=== PATIENT | female | born 1945 | race Caucasian/White ===

== ENCOUNTER 2018-04-24 08:19 | Emergency (ER) | payer OTHER, SELFPAY ==
[2018-04-24] VITALS (30 sets, daily range): BP systolic 128–176; BP diastolic 68–95; PULSE 82–93; RESP 16–25; TEMP 36.7–37; O2SAT 91–96
[2018-04-24 08:53] LABS: Abs Immature Grans 0.02 k/cumm (0.0-0.09); Absolute Basophil Count 0.06 k/cumm (0.0-0.2); Absolute Eosinophil Count 0.77 k/cumm (0.0-0.7); Absolute Lymphocyte Count 2.54 k/cumm (1.2-3.4); Absolute Monocyte Count 0.83 k/cumm (0.11-0.7); Absolute Neutrophil Count 6.41 k/cumm (1.2-6.7); Basophils % 0.6; Eosinophils % 7.2; HGB 13.2 g/dL (12.0-15.5); Immature Grans % 0.2; Lymphocytes % 23.9; Mean Corp. HGB Concentration 33.8 g/dL (32.0-36.0); Mean Corpuscular Volume 94.7 fL (80-95); Mean Platelet Volume 9.9 fL (8.0-11.0); Monocytes % 7.8; Neutrophils % 60.3; Platelet Count 339 x1000/uL (130-400); RBC 4.12 m/cumm (4.00-5.20); RBC Distribution Width 14.1 % (11.7-14.6); White Blood Cell Count 10.63 k/cumm (4.4-10.8)
--- NOTE | 2018-04-24 09:10 | DI.REPORT_ITS ---
SYMPTOM/DIAGNOSIS: CHEST PAIN PORTABLE AP CHEST: 04/24 The heart appears mildly enlarged. There is mildly increased intrapulmonary interstitial prominence in comparison with previous examinations raising the possibility of mild acute CHF. Note is also made of question change in contour of thoracic aorta in comparison with previous examinations land the possibility of thoracic aortic aneurysm is not excluded. Correlation with CT angiography of the chest is recommended. Results communicated with Dr. Hinkle.
--- NOTE | 2018-04-24 09:11 | DI.RPTCT_ITS ---
SYMPTOM/DIAGNOSIS: EPIGASTRIC ABDOMINAL PAIN AND SUBSTERNAL CHEST RADIATING TO BACK. CT ANGIOGRAPHY CHEST AND ABDOMEN: 04/24 CT angiography of the chest and abdomen was performed with a bolus infusion of 100 cc Omnipaque 350. The thoracic aorta is of normal diameter with no evidence of aneurysm or dissection. The major branch vessels are unremarkable. No evidence of pulmonary embolic disease. There is some atheromatous plaque formation in thoracic and abdominal aorta. No abdominal aortic aneurysm seen. Major aortic branches including celiac, SMA, renal arteries and KARYN appear intact. There is a large mediastinal mass on the left which appears centered at the level of the distal mainstem bronchus on the left with significant narrowing of the upper and lower lobe bronchi. There is encasement of thoracic aorta and left pulmonary artery. There are peripheral patchy areas of apparent consolidation in the left lung posteriorly with some tree and bilateral opacities also noted. There is honeycombing of the lungs, right greater than left. No dominant intrapulmonary mass is seen. No significant pleural effusions seen. Lymph node enlargement is noted in superior mediastinum and there is a large anterior mediastinal node measuring up to about 4 cm in diameter. No abdominal adenopathy seen. Liver, splen, adrenals, kidneys and pancreas are unremarkable in appearance. Gallbladder and bile ducts are CT normal. No gross bony destructive lesion identified. Severe degenerative changes of the thoracic and lumbar spine are noted. CONCLUSION: 1. No evidence of aortic dissection or aneurysm 2. No evidence of pulmonary embolic disease 3. Very large left hilar/mediastinal mass, highly suspicious for carcinoma with additional central and superior mediastinal adenopathy.
--- NOTE | 2018-04-24 09:12 | ED.GENADUL ---
Disposition Clinical Impression: Hilar mass Disposition: HOME Condition: Serious Instructions: Pneumonia (ED) Additional Instructions: You have a mass in your chest that is concerning for cancer. Please follow-up with your primary care physician as soon as possible. There is also concern on the CT imaging of possible early pneumonia. Please take antibiotic as prescribed. Please take Advil for pain-dose according to label. Please take tylenol (acetaminophen) 650 mg every 6 hours as needed for pain. Return to the emergency department immediately for any worsening or new concerning symptoms. Prescriptions: Azithromycin 250 mg PO DAILY #4 tablet Referrals: Gianna Sevilla [Primary Care Provider] - Medical Decision Making - Lab Data Laboratory Tests 04/24/18 08:35 WBC 10.63 RBC 4.12 Hgb 13.2 Hct 39.0 MCV 94.7 MCH 32.0 MCHC 33.8 RDW 14.1 Plt Count 339 MPV 9.9 Immature Gran % 0.2 Neutrophils % 60.3 Lymphocytes % 23.9 Monocytes % 7.8 Eosinophils % 7.2 Basophils % 0.6 Absolute Neutrophils 6.41 Absolute Lymphocytes 2.54 Absolute Monocytes 0.83 H Absolute Eosinophils 0.77 H Absolute Basophils 0.06 - Medical Decision Making 9:15 --72-year-old female with multiple medical problems including COPD, hypertension, hyperlipidemia, GERD, hiatal hernia status post repair approximately 5 years ago, presents with chief complaint of substernal chest pain and epigastric pain that is radiating to her back. Tender in her epigastrium that reproduces pain. Consider atypical presentation of ACS. ECG reviewed and interpreted by me: Normal sinus rhythm 89 bpm, normal axis, no STEMI. Plan to check troponin. Consider biliary disease and pancreatitis. Will check LFTs and lipase. I am concerned for recurrent hiatal hernia. Plan to CT to assess for any acute surgical pathology. Consider aortic dissection. 10:15 --chest x-ray interpreted by radiology: Abnormal aortic contour. 11:05 --CT interpreted by radiology: Large left hilar mass encases bronchi and great vessels,, suspect bronchogenic origin, questionable small infiltrate concerning for pneumonia. I reviewed results with the patient. I called and spoke with the patient's primary care office who will arrange for outpatient follow-up. History of Present Illness - General Chief complaint: Chest Pain Stated complaint: CHEST PAIN Time Seen by Provider: 04/24/18 08:35 Source: patient, RN notes reviewed Mode of arrival: ambulatory Limitations: no limitations - History of Present Illness Initial comments: 72-year-old female with multiple medical problems including COPD, hypertension, hyperlipidemia, hiatal hernia status post surgical repair, presents with chief complaint of chest pain. Pain is localized to her substernal chest and epigastric region and radiates to mid back. Pain is sharp. Pain is been progressive over the past 2 weeks. Pain is now constant. Moderate to severe. No modifiers. She was started on omeprazole as prescribed by PCP 2 weeks ago and this has not helped. Patient does note associated shortness of breath. - Related Data Narcotic Contract 10/07/14 Trazodone HCl 2 tab PO hs prn #180 tab-cap 07/07/15 Amlodipine Besylate 10 mg PO QAM #90 tab-cap 10/14/15 Venlafaxine HCl [Venlafaxine HCl ER] 150 mg PO DAILY #90 tab-cap 10/14/15 Cyanocobalamin (Vitamin B-12) [Vitamin B-12] 1,000 mcg PO DAILY #100 tab-cap 11/08/15 Calcium Citrate/Vitamin D3 [Calcium Citrate - Vit D Caplet] 1 each PO BID 01/11/17 Cholecalciferol (Vitamin D3) [Vitamin D3] 2,000 unit PO DAILY 01/11/17 Gabapentin 800 mg PO TID tab-cap 01/11/17 Lisinopril/Hydrochlorothiazide [Lisinopril-Hctz 20-12.5 mg Tab] 1 tab-cap PO DAILY tab-cap 01/11/17 Ibuprofen [Motrin] 600 mg PO Q6H PRN #20 tab 03/26/17 Ranitidine HCl 150 mg PO BID tab-cap 06/03/17 Tramadol HCl 50 mg PO DAILY PRN tab-cap 06/03/17 Azithromycin 250 mg PO DAILY #4 tablet 04/24/18 Allergies Allergy/AdvReac Type Severity Reaction Status Date / Time bupropion HCl AdvReac Severe DEPRESSION Unverified 04/24/18 09:03 [From Wellbutrin] codeine AdvReac Mild NAUSEA Unverified 04/24/18 09:03 carisoprodol [From Soma] AdvReac Unknown Unverified 04/24/18 09:03 Review of Systems Constitutional: denies: chills, fever Respiratory: shortness of breath. denies: cough Cardiovascular: chest pain Gastrointestinal: abdominal pain. denies: nausea, vomiting, diarrhea Comment: All other systems reviewed and negative Past Medical History - Past Medical History Medical history: COPD, hyperlipidemia, hypertension Hiatal hernia Surgical history: other (Knee replacement) - Social History Smoking status: current some day smoker Alcohol use: none Drug use: none General Exam - General Limitations: no limitations General appearance: alert, in no apparent distress - Eye Eye exam: Absent: scleral icterus, conjunctival injection - ENT ENT exam: Present: mucous membranes moist - Neck Neck exam: Present: other (No JVD) - Respiratory Respiratory exam: Present: normal lung sounds bilaterally. Absent: respiratory distress, wheezes, rales, rhonchi - Cardiovascular Cardiovascular Exam: Present: regular rate, normal rhythm, normal heart sounds - GI/Abdominal GI/Abdominal exam: Present: soft, tenderness (Epigastric), normal bowel sounds. Absent: distended, guarding, rebound, rigid - Extremities Exam Extremities exam: Absent: pedal edema, calf tenderness - Neurological Exam Neurological exam: Present: alert. Absent: altered - Psychiatric Psychiatric exam: Present: normal affect - Skin Skin exam: Present: warm, dry, intact. Absent: cyanosis, diaphoretic Course Vital Signs - 24 hr 04/24/18 04/24/18 04/24/18 08:25 08:27 08:28 Temperature 37.0 C Pulse 86 88 Respiratory 23 25 H 19 Rate Blood Pressure 156/68 156/68 Pulse Oximetry 95 96 95 04/24/18 04/24/18 04/24/18 08:30 08:31 08:40 Temperature Pulse 84 Respiratory 21 20 25 H Rate Blood Pressure 135/75 Pulse Oximetry 94 L 94 L 95 04/24/18 04/24/18 08:46 08:50 Temperature Pulse 86 Respiratory 16 24 Rate Blood Pressure 130/77 Pulse Oximetry 94 L 94 L
[2018-04-24 09:14] LABS: ALT 15 U/L (12-78); AST 11 U/L (15-37); Albumin 3.1 g/dL (3.4-5.0); Alkaline Phosphatase 98 U/L (46-116); BUN 10 mg/dL (7-18); Bilirubin, Total 0.4 mg/dL (0.2-1.0); CREATININE 0.83 mg/dL (0.55-1.02); Calcium 8.6 mg/dL (8.5-10.1); Chloride 99 mmol/L (98-107); Glucose 109 mg/dL (70-100); Magnesium 1.8 mg/dL (1.8-2.4); Sodium 136 mmol/L (136-145)
[2018-04-24 09:16] LABS: Troponin I < 0.02 ng/mL (0.00-0.06)
[2018-04-24 09:28] LABS: Lipase 56 U/L (73-393)
[2018-04-24] MEDS: Normal Saline Flush 10 ML SYR IVP (09:30)
[2018-04-24] MEDS: FAMOTIDINE 20 MG/50 ML BAG 100 MG IVPB (09:30)
[2018-04-24 09:56] LABS: NT-proBNP 173 pg/mL
[2018-04-24] MEDS: Omnipaque 350 MG/ML 100 ML BTL IJ (10:23)
[2018-04-24] MEDS: Azithromycin 250 MG TAB 500 MG PO (11:09)
[2018-04-24] MEDS: Ibuprofen 400 MG TAB PO (11:09)
--- NOTE | 2018-04-24 11:22 | PDOC.ERCMPRO ---
Care Management Progress Note 04/24-Dr. Hinkle requested assistance with Gabriela as he has diagnosed her with a mass in her chest (Please see Dr. Hinkle's note). Dr. Hinkle, this CM, Gabriela, and her granddaughter discussed the above. Dr. Hinkle did speak with [facility] (Gianna Sevilla is PCP) and [facility] will schedule appropriate follow up for her. This CM stayed with Gabriela and her granddaughter providing support. Granddaughter cried throughout the visit. Gabriela stated she was not afraid and didn't want her granddaughter to be upset. Offered continual support. Gabriela and her granddaughter have my contact information if further assistance is needed.
--- NOTE | 2018-04-24 11:31 | CMPROGNOTE_ITS ---
Care Management Progress Note 04/24-Dr. Hinkle requested assistance with Gabriela as he has diagnosed her with a mass in her chest (Please see Dr. Hinkle's note). Dr. Hinkle, this CM, Gabriela, and her granddaughter discussed the above. Dr. Hinkle did speak with [facility] (Gianna Sevilla is PCP) and [facility] will schedule appropriate follow up for her. This CM stayed with Gabriela and her granddaughter providing support. Granddaughter cried throughout the visit. Gabriela stated she was not afraid and didn't want her granddaughter to be upset. Offered continual support. Gabriela and her granddaughter have my contact information if further assistance is needed.
== END 2018-04-24 11:25 | disposition home or self-care (01) ==
PROVIDERS: Emergency Provider Student in an Organized Health Care Education/Training Program; PCP Nurse Practitioner Family
DX: R91.8 Other nonspecific abnormal finding of lung field (principal); R10.13 Epigastric pain; I10 Essential (primary) hypertension; J44.9 Chronic obstructive pulmonary disease, unspecified; F17.210 Nicotine dependence, cigarettes, uncomplicated
CPT/HCPCS: 36415; 71275; 74175; 80053; 83690; 93005; 96365; 99284; 71045; 83735; 83880; 84484; 85025; 93010; 99285; J3490

== ENCOUNTER 2018-05-16 00:53 | Outpatient (CLI) | payer OTHER, SELFPAY ==
[2018-05-16] MEDS: Gadoterate meglumine 20 ML VIAL 12 ML IVP (09:19)
--- NOTE | 2018-05-16 09:37 | DI.MRI_ITS ---
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 T 2 sagittal, T 1, T 2, FLAIR, diffusion and gradient echo axial and post Gadolinium T 1 axial and coronal sequences were performed. No intracranial hemorrhage, mass or acute infarct is seen. There are no abnormal enhancing lesions. There is mild atrophy. There are patchy areas of high signal in the white matter consistent with small vessel disease. The findings are more prominent in the left basal ganglia region. The vascular flow voids appear intact. The sinuses and mastoid air cells appear clear. The orbits and pituitary are unremarkable. IMPRESSION: No evidence of metastatic disease. Changes of small vessel disease are noted.
== END 2018-05-16 01:13 ==
PROVIDERS: PCP Nurse Practitioner Family; Visit Provider Radiology Radiation Oncology
DX: C34.32 Malignant neoplasm of lower lobe, left bronchus or lung (principal); Z12.89 Encounter for screening for malignant neoplasm of other sites
CPT/HCPCS: 70553

== ENCOUNTER 2018-05-28 13:59 | Outpatient (CLI) | payer OTHER, SELFPAY ==
[2018-05-28 14:22] LABS: Abs Immature Grans 0.03 k/cumm (0.0-0.09); Absolute Basophil Count 0.05 k/cumm (0.0-0.2); Absolute Eosinophil Count 0.77 k/cumm (0.0-0.7); Absolute Monocyte Count 0.61 k/cumm (0.11-0.7); Absolute Neutrophil Count 7.96 k/cumm (1.2-6.7); Basophils % 0.4; Eosinophils % 6.8; HGB 12.3 g/dL (12.0-15.5); Immature Grans % 0.3; Lymphocytes % 16.8; Mean Corp. HGB Concentration 33.2 g/dL (32.0-36.0); Mean Corpuscular Volume 96.4 fL (80-95); Mean Platelet Volume 9.7 fL (8.0-11.0); Monocytes % 5.4; Neutrophils % 70.3; Platelet Count 361 x1000/uL (130-400); RBC 3.84 m/cumm (4.00-5.20); RBC Distribution Width 13.7 % (11.7-14.6); White Blood Cell Count 11.32 k/cumm (4.4-10.8)
[2018-05-28 14:35] LABS: ALT 15 U/L (12-78); AST 12 U/L (15-37); Alkaline Phosphatase 93 U/L (46-116); Anion Gap 9.1 mmol/L (3-11); BUN 18 mg/dL (7-18); Bilirubin, Total 0.2 mg/dL (0.2-1.0); CO2 29.9 mmol/L (21.0-32.0); CREATININE 0.81 mg/dL (0.55-1.02); Calcium 8.7 mg/dL (8.5-10.1); Chloride 101 mmol/L (98-107); Glucose 130 mg/dL (70-100); Potassium 3.6 mmol/L (3.5-5.1); Sodium 140 mmol/L (136-145); Total Protein 6.8 g/dL (6.4-8.2)
== END 2018-05-28 14:19 ==
PROVIDERS: PCP Nurse Practitioner Family; Visit Provider Internal Medicine
DX: C34.32 Malignant neoplasm of lower lobe, left bronchus or lung (principal)
CPT/HCPCS: 36415; 80053; 85025

== ENCOUNTER 2018-06-12 11:22 | Outpatient (CLI) | payer OTHER, SELFPAY ==
[2018-06-12 11:42] LABS: Abs Immature Grans 0.03 k/cumm (0.0-0.09); Absolute Basophil Count 0.03 k/cumm (0.0-0.2); Absolute Eosinophil Count 0.24 k/cumm (0.0-0.7); Absolute Lymphocyte Count 0.62 k/cumm (1.2-3.4); Absolute Monocyte Count 1.14 k/cumm (0.11-0.7); Absolute Neutrophil Count 10.78 k/cumm (1.2-6.7); Basophils % 0.2; Eosinophils % 1.9; HCT 34.4 % (36.0-46.0); HGB 11.3 g/dL (12.0-15.5); Immature Grans % 0.2; Lymphocytes % 4.8; Mean Corp. HGB Concentration 32.8 g/dL (32.0-36.0); Mean Corpuscular Hemoglobin 31.7 pg (27.0-33.0); Mean Corpuscular Volume 96.4 fL (80-95); Mean Platelet Volume 10.3 fL (8.0-11.0); Monocytes % 8.9; Platelet Count 279 x1000/uL (130-400); RBC 3.57 m/cumm (4.00-5.20); RBC Distribution Width 13.8 % (11.7-14.6); White Blood Cell Count 12.83 k/cumm (4.4-10.8)
[2018-06-12 11:54] LABS: ALT 24 U/L (12-78); AST 16 U/L (15-37); Albumin 2.6 g/dL (3.4-5.0); Alkaline Phosphatase 80 U/L (46-116); Anion Gap 7.4 mmol/L (3-11); BUN 20 mg/dL (7-18); Bilirubin, Total 0.4 mg/dL (0.2-1.0); CO2 28.6 mmol/L (21.0-32.0); CREATININE 0.88 mg/dL (0.55-1.02); Calcium 8.7 mg/dL (8.5-10.1); Chloride 101 mmol/L (98-107); Glucose 219 mg/dL (70-100); Potassium 4.1 mmol/L (3.5-5.1); Sodium 137 mmol/L (136-145); Total Protein 6.4 g/dL (6.4-8.2)
== END 2018-06-12 11:42 ==
PROVIDERS: PCP Nurse Practitioner Family; Visit Provider Nurse Practitioner Adult Health
DX: C34.32 Malignant neoplasm of lower lobe, left bronchus or lung (principal)
CPT/HCPCS: 36415; 80053; 85025

== ENCOUNTER 2018-06-14 08:51 | Emergency (ER) | payer OTHER, SELFPAY ==
[2018-06-14] VITALS (22 sets, daily range): BP systolic 87–130; BP diastolic 44–86; PULSE 86–101; RESP 5–20; TEMP 37–37.1; O2SAT 95–100
--- NOTE | 2018-06-14 09:18 | DI.RAD_ITS ---
SYMPTOMS/DIAGNOSIS: COUGH, FEVERS, ? PNEUMONIA CHEST X-RAY, PA AND LATERAL: Comparison is 03/21/18. The heart size is within normal limits. There is atherosclerosis and tortuosity of the thoracic aorta. Aneurysmal dilatation cannot be excluded. There is an infiltrate seen in the left mid and left lower lung ga. The right lung is clear. No effusions or pneumothoraces are identified. There is an S-type thoracolumbar scoliosis. Moderately severe degenerative changes are seen in the spine. The lungs do appear to be somewhat hyperinflated, suggesting underlying COPD. IMPRESSION: Infiltrates seen in the mid and lower lung ga on the left suspicious for pneumonia.
[2018-06-14 09:37] LABS: Abs Immature Grans 0.03 k/cumm (0.0-0.09); Absolute Basophil Count 0.03 k/cumm (0.0-0.2); Absolute Lymphocyte Count 0.81 k/cumm (1.2-3.4); Absolute Monocyte Count 0.82 k/cumm (0.11-0.7); Absolute Neutrophil Count 7.12 k/cumm (1.2-6.7); Basophils % 0.3; Eosinophils % 2.2; HCT 34.2 % (36.0-46.0); HGB 11.1 g/dL (12.0-15.5); Immature Grans % 0.3; Mean Corp. HGB Concentration 32.5 g/dL (32.0-36.0); Mean Corpuscular Hemoglobin 31.4 pg (27.0-33.0); Mean Corpuscular Volume 96.9 fL (80-95); Mean Platelet Volume 10.4 fL (8.0-11.0); Monocytes % 9.1; Neutrophils % 79.1; Platelet Count 288 x1000/uL (130-400); RBC 3.53 m/cumm (4.00-5.20); RBC Distribution Width 14.1 % (11.7-14.6); White Blood Cell Count 9.01 k/cumm (4.4-10.8)
[2018-06-14 09:55] LABS: ALT 25 U/L (12-78); AST 13 U/L (15-37); Albumin 2.7 g/dL (3.4-5.0); Alkaline Phosphatase 77 U/L (46-116); Anion Gap 6.5 mmol/L (3-11); BUN 17 mg/dL (7-18); Bilirubin, Direct 0.12 mg/dL (0.00-0.20); Bilirubin, Total 0.4 mg/dL (0.2-1.0); CO2 30.5 mmol/L (21.0-32.0); CREATININE 0.76 mg/dL (0.55-1.02); Calcium 9.2 mg/dL (8.5-10.1); Chloride 100 mmol/L (98-107); Glucose 109 mg/dL (70-100); Magnesium 2.1 mg/dL (1.8-2.4); Potassium 4.1 mmol/L (3.5-5.1); Sodium 137 mmol/L (136-145); Total Protein 6.8 g/dL (6.4-8.2); Troponin I < 0.02 ng/mL (0.00-0.06)
[2018-06-14] MEDS: Albuterol/Ipratropium 3 ML UPD VIAL UPD (10:00)
[2018-06-14] MEDS: Normal Saline 500 ML IV (10:00)
--- NOTE | 2018-06-14 10:04 | ED.GENADUL_ITS ---
Discharge Plan Disposition Patient Disposition: HOME Condition: Fair Discharge Details Chief Complaint: RespSymp Clinical Impression: Pneumonia Primary Care Provider: Gianna Sevilla ED Provider: Yolis Caruso [facility] Meds and New Rx's Prescriptions: New benzonatate [Tessalon Perles] 100 mg capsule 100 mg PO TID PRN (Reason: cough) Qty: 14 RF: 0 Continue narcotic contract RF: 0 trazodone 100 MG tablet 2 tab PO hs prn Qty: 180 RF: 4 venlafaxine 150 MG capsule,extended release 24hr 150 mg PO DAILY Qty: 90 RF: 1 cyanocobalamin (vitamin B-12) [Vitamin B-12] 1,000 MCG tablet 1,000 mcg PO DAILY Qty: 100 RF: 4 cholecalciferol (vitamin D3) [Vitamin D3] 2,000 UNIT capsule 2,000 unit PO DAILY RF: 0 ranitidine HCl 150 MG capsule 150 mg PO BID RF: 0 amlodipine 2.5 mg Tablet 1 tab PO DAILY RF: 0 prochlorperazine maleate 10 mg Tablet 10 mg PO ONCE PRNRF: 0 hydrocodone-acetaminophen 10-325 mg Tablet 1 tab PO Q6H PRNRF: 0 levofloxacin [Levaquin] 750 mg Tablet 1 tab PO DAILY RF: 0 Discharge Instructions Instructions: Pneumonia (ED) Additional Instructions: Continue to encourage hydration, continue to take small sips frequently. Continue with Levaquin as previously prescribed. Tessalon Perles as prescribed today to help with cough. This may be particularly helpful at night. At night , please try to prop herself up into a more seated position as this will likely help with your cough. Please keep upcoming appointment with oncology. If you develop fever/chills, chest pain, difficulty breathing, shortness of breath or other new/worsening symptoms please seek care urgently once again. Referrals: Gianna Sevilla [Primary Care Provider] - Discharge Data Discharge Date/Time-TO BE ENTERED AT DEPARTURE: 06/14/18 13:39 Medical Decision Making Patient is a 72-year-old female, coming by family, with chief complaint of worsening cough. Patient has history of stage III lung cancer. Also has history of hypertension, GERD, tobacco abuse, Stiles's esophagus. patient was diagnosed with pneumonia 2 weeks ago. Was initially treated with azithromycin. She reports that despite this her symptoms have persisted. She reports over the past 2 days her cough has increased in severity and in production. Patient was seen by oncology who prescribed Levaquin. Patient has had 2 doses of Levaquin thus far. She did have laboratory evaluation 2 days ago which showed leukocytosis. Patient reports that she had CT imaging prior to her last radiation report within the last 2 weeks at the time of the onset of discomfort. On exam, patient is on 3 L of nasal cannula. She has been on this amount of oxygen at home for the past 5 weeks. Oxygen saturation 99%. She is afebrile. Reports that she has had fever with T-max of 9.8 at home. She is currently afebrile. Nontoxic-appearing. She is bringing up a large amount of sputum with coughing. She is also having coughing fits after drinking. She reports this is been ongoing for the past 24 hours. Patient does appear dehydrated on exam, will give a 500 cc. E[address] reviewed [address] Pike. No acute ischemic changes noted. Patient is in normal sinus rhythm with a rate of 90. Patient received DuoNeb to help with wheezing, afterwards the patient denied any improvement but was much more clear on exam with resolution of the wheezing. Crackles in the left lung persists. CXR reviewed by radiologist. That note ill-defined infiltrate, left mid and lower lung. Right lung is clear. Unremarkable pleural space. No effusion or pneumothorax noted. Heart and mediastinum unremarkable with no cardiomegaly. Aorta is markedly tortuous. Possibility of aortic aneurysm not excluded. Moderate degenerative changes of the thoacolumbar spine. Moderate scoliosis of the thoracolumbar spine noted. Patient has been in contact with [facility] [place]ologist this morning. They advised patient that they would like notification of the patients workup, have requested consult with oncology at [facility]. Consulted with Dr. Steve with [facility] oncology. We reviewed the patient's history and laboratory findings. Advised the patient may continue with the Levaquin and agreed with the addition of Tessalon Perles to help with sleep. Discussed with the patient. She has appointment on Saturday with oncology who will be able to reevaluate the patient. Advised that as the cough seems to be much worse when laying supine, she tried propping herself up more at night as this may be 1 of the reason she is having such difficulty sleeping and cough worse at night. Patient has been in the chair for the past hour and is doing much better in an upright position with less coughing. She is tolerating fluids well with coaching of taking small sips. It seems that when the patient tries to drink a large amount at one time this exacerbates her coughing. She has remained afebrile. I advised that she continue with the breathing treatments she has at home as this did seem to clear up some of her wheezing. I encouraged her to continue with the Levaquin as previously advised. I encouraged her to keep upcoming appointment for reevaluation. We discussed new/ worsening symptoms and when to seek care urgently once again. All of her questions and concerns were addressed and she is in agreement with this plan HPI General Mode of arrival: ambulatory . Date/Time Provider Initiated Documentation: 06/14/18 09:07 . Limitations to Documentation: no limitations . Information obtained by: patient and family . History of Present Illness 72 year old F presents to the emergency department with the chief complaint of pneumonia, described as moderate, with intensity rated at 5 (states that she can have coughing fits that are very problematic. Denies any pain at this time. ). Patient denies radiation to back. Patient started experiencing this week(s) (2) and it has been constant. No relieving factors improve symptom(s), Other factors that worsen symptoms (cough worse with drinking) . Patient notes cough, fever/chills (T max 99.8) and shortness of breath; denies chest pain, headaches, nausea/vomiting, rash and weakness. Patient did receive the following treatments prior to arrival, other (Took second dose of Levoquin this morning. Was on z-trisha prior to this. ) Related Data Home Medications Medication Instructions Recorded Confirmed trazodone 2 tab PO hs prn #180 tab-cap 07/07/15 venlafaxine 150 mg PO DAILY #90 tab-cap 10/14/15 cyanocobalamin (vitamin B-12) 1,000 mcg PO DAILY #100 tab-cap 11/08/15 06/14/18 [Vitamin B-12] cholecalciferol (vitamin D3) 2,000 unit PO DAILY 01/11/17 06/14/18 [Vitamin D3] ranitidine HCl 150 mg PO BID tab-cap 06/03/17 08/07/17 amlodipine 1 tab PO DAILY 06/14/18 06/14/18 benzonatate [Tessalon Perles] 100 mg PO TID PRN #14 cap 06/14/18 hydrocodone-acetaminophen 1 tab PO Q6H PRN 06/14/18 06/14/18 levofloxacin [Levaquin] 1 tab PO DAILY 06/14/18 06/14/18 prochlorperazine maleate 10 mg PO ONCE PRN 06/14/18 06/14/18 Previous Rx's Medication Instructions Recorded benzonatate [Tessalon Perles] 100 mg PO TID PRN #14 cap 06/14/18 Allergies Allergy/AdvReac Type Severity Reaction Status Date / Time bupropion HCl AdvReac Severe DEPRESSION Unverified 04/24/18 09:03 [From Wellbutrin] codeine AdvReac Mild NAUSEA Unverified 04/24/18 09:03 carisoprodol [From Soma] AdvReac Unknown Unverified 04/24/18 09:03 General Stated Complaint: RespSymp LAWSON: 3 Review of Systems Constitutional Reports as per HPI, Denies chills, Reports fatigue, Reports fever(s), Denies headache(s) and Reports poor appetite (Reports that p.o. intake often increase his cough) ENT Denies abnormal hearing, Denies dizziness, Reports dry mouth, Denies ear discharge, Denies otalgia, Denies headache(s), Denies hoarseness, Denies nasal congestion, Denies nasal discharge, Denies nose pain, Denies sinus pain, Denies sinus pressure and Reports sore throat Cardiovascular Denies chest pain, Denies chest pain at rest, Denies chest pain with activity, Denies palpitations and Reports dyspnea Respiratory Reports as per HPI, Reports chest congestion, Reports cough, Denies pain on inspiration, Denies pain with cough, Reports dyspnea, Denies stridor and Denies wheezing Gastrointestinal Denies change in bowel habits, Denies diarrhea, Denies nausea and Denies vomiting Genitourinary Denies system reviewed and no additional complaints, except as docu (Denies any change in urinary habit) Musculoskeletal Denies back pain Integumentary/Breasts Denies rash Neurologic Denies abnormal hearing, Denies dizziness and Denies headache(s) Endocrine Reports fatigue and Denies palpitations Allergic/Immunologic Denies wheezing PFSH Family History Mother Essential hypertension Personal history of malignant neoplasm Hyperlipidemia Father Personal history of malignant neoplasm Sister Personal history of malignant neoplasm Sister Personal history of malignant neoplasm Brother Essential hypertension Personal history of malignant neoplasm Hypercholesterolemia Brother Personal history of malignant neoplasm Grandfather Essential hypertension Hyperlipidemia Cerebrovascular accident Grandfather Cerebrovascular accident Grandmother Personal history of malignant neoplasm Grandmother Personal history of malignant neoplasm Son No problems noted. Daughter No problems noted. Medical History Stiles's esophagus with esophagitis COPD (chronic obstructive pulmonary disease) Chronic pain Constipation Diaphragmatic hernia Dysphagia Esophagitis GERD (gastroesophageal reflux disease) Gastritis Hyperlipidemia Hypertension Lumbar radiculopathy, chronic Melena Myalgia Polyarthralgia Post-menopausal osteoporosis Tobacco abuse Vitamin B12 deficiency Vitamin D deficiency Social History Smoking/Tobacco Use Status: Former Tobacco Use Surgical History EGD - MAC (01/30/17) Zuly Fundoplication Replacement of total knee joint (~2012) Exam Const General: cooperative, comfortable, no acute distress, well groomed and ill appearing chronically Nutritional Appearance: average body habitus Orientation: alert and awake HENMT Head: normal to inspection and normocephalic Ears: hearing grossly normal bilaterally, external ears normal and TM's normal bilaterally General nose exam: external nose normal and nares normal Face and sinus: normal facial exam and sinuses nontender Mouth: mucous membranes dry (Patient appears to) and no trismus Throat: posterior oropharynx normal, tonsils normal and uvula midline Eyes General: appearance normal, both eyes and all related structures Neck Neck: normal visual inspection, no lymphadenopathy and no meningeal signs Resp Effort & Inspection: normal respiratory effort (Patient is currently on 3 L nasal canula), able to speak in complete sentences, cough Quality of cough: productive, not labored, no respiratory distress, no retractions, no stridor, not tachypneic, no tracheal deviation, no tripod positioning and no use of accessory muscles Auscultation: crackles on the left in the mid lung ga and in the lower lung ga and wheezes expiratory wheezes (diffuse) Cardio Rate: regular rate Rhythm: regular rhythm Heart Sounds: S1 normal and S2 normal GI Inspection: normal to inspection, no abdominal wall ecchymosis, no edema and non -distended Palpation: not firm, no guarding, not rigid and nontender Auscultation: normal bowel sounds Skin General skin exam: no rashes or lesions noted Neuro General: alert and awake Cognition: normal cognition Speech: speech normal Gait: normal gait Extrem General: no pedal edema, no calf tenderness and normal gait Psych Appearance: grossly normal and well kempt Mental Status: mental status grossly normal Speech and Movement: speech and movement normal Mood: congruent mood Course Vital Signs Temperature 37.1 C 06/14/18 08:59 Pulse 101 H 06/14/18 08:59 Respiratory Rate 20 06/14/18 08:59 Blood Pressure 115/68 06/14/18 08:59 Pulse Oximetry 99 06/14/18 08:59 Temperature 37.1 C 06/14/18 08:59 Temperature Source Temporal Artery Scan 06/14/18 08:59 Pulse 101 H 06/14/18 08:59 Respiratory Rate 20 06/14/18 08:59 Respiratory Effort 06/14/18 09:16 Respiratory Depth Normal 06/14/18 09:16 Blood Pressure 115/68 06/14/18 08:59 Blood Pressure Position Sitting 06/14/18 08:59 Pulse Oximetry 99 06/14/18 08:59 Oxygen Delivery Method Nasal Cannula 06/14/18 08:59 Oxygen Flow Rate 3 06/14/18 08:59 Pain Level 0 06/14/18 08:59 Lab/Test Results Lab/Test Results: 06/14/18 09:20 Blood Blood Culture - Pending 06/14/18 09:19 Blood Blood Culture - Pending Laboratory Tests Range/Units 06/14/18 06/14/18 06/14/18 09:20 09:20 09:20 WBC (4.4-10.8) k/cumm 9.01 RBC (4.00-5.20) m/cumm 3.53 L Hgb (12.0-15.5) g/dL 11.1 L Hct (36.0-46.0) % 34.2 L MCV (80-95) fL 96.9 H MCH (27.0-33.0) pg 31.4 MCHC (32.0-36.0) g/dL 32.5 RDW (11.7-14.6) % 14.1 Plt Count (130-400) x1000/uL 288 MPV (8.0-11.0) fL 10.4 Immature Gran % 0.3 Neutrophils % 79.1 Lymphocytes % 9.0 Monocytes % 9.1 Eosinophils % 2.2 Basophils % 0.3 Absolute Neutrophils (1.2-6.7) k/cumm 7.12 H Absolute Lymphocytes (1.2-3.4) k/cumm 0.81 L Absolute Monocytes (0.11-0.7) k/cumm 0.82 H Absolute Eosinophils (0.0-0.7) k/cumm 0.20 Absolute Basophils (0.0-0.2) k/cumm 0.03 Sodium (136-145) mmol/L 137 Potassium (3.5-5.1) mmol/L 4.1 Chloride (98-107) mmol/L 100 Carbon Dioxide (21.0-32.0) mmol/L 30.5 Anion Gap (3-11) mmol/L 6.5 BUN (7-18) mg/dL 17 Creatinine (0.55-1.02) mg/dL 0.76 Estimated GFR/1.73 m2 (mL/min/1.73m2) >= 60.00 Glucose (70-100) mg/dL 109 H D Lactate (0.6-1.4) mmol/L 1.0 Calcium (8.5-10.1) mg/dL 9.2 Magnesium (1.8-2.4) mg/dL 2.1 Total Bilirubin (0.2-1.0) mg/dL 0.4 Conjugated Bilirubin (0.00-0.20) mg/dL 0.12 AST (15-37) U/L 13 L ALT (12-78) U/L 25 Alkaline Phosphatase (46-116) U/L 77 Troponin I (0.00-0.06) ng/mL < 0.02 Total Protein (6.4-8.2) g/dL 6.8 Albumin (3.4-5.0) g/dL 2.7 L
--- NOTE | 2018-06-14 10:50 | RESPIRATORY ---
Instructed patient on the use of spacer with MDI. Patient understood instructions and a caregiver in the room said she would help as caregiver uses one too.
[2018-06-14 11:23] LABS: Bilirubin Small (Negative); Blood Negative (Negative); Clarity Clear; Glucose Negative (Negative); Ketones Trace mg/dL (Negative); Leukocyte Esterase Small (Negative); Nitrite Negative (Negative); Specific Gravity >= 1.030 (1.005-1.025)
[2018-06-14 11:35] LABS: Epithelial Cells Many HPF (Negative); RBC Negative (0-2)
[2018-06-14 11:36] LABS: Bacteria Few HPF (Negative); C & S Indicated? No; Casts Negative LPF (Negative); Crystals Moderate Amorphous HPF (Negative); Mucus Heavy (Negative)
--- NOTE | 2018-06-14 12:50 | DI.VRAD_ITS ---
EXAM: XR Chest, 2 Views EXAM DATE/TIME: 06/14/2018 9:19 AM CLINICAL HISTORY: 72 years old, female; Signs and symptoms; Cough TECHNIQUE: XR of the chest, 2 views. COMPARISON: CR PORTABLE CHEST ONE VIEW 04/24/2018 9:15 AM FINDINGS: Lungs: Ill-defined infiltrate, left mid and lower lung. Right lung is clear. Pleural space: Unremarkable. No pleural effusion. No pneumothorax. Heart/Mediastinum: Unremarkable. No cardiomegaly. Vasculature: Aorta is markedly tortuous. The possibility of aortic aneurysm is not excluded. Bones/joints: Moderate degenerative changes, thoracolumbar spine. Moderate scoliosis, thoracolumbar spine. IMPRESSION: Probable left middle lower lung pneumonia, new since the previous study. The right lung is clear. Dictated and Authenticated by: Shine Martinez MD. Ordering:JESSICA FLORES MD
== END 2018-06-14 13:39 | disposition home or self-care (01) ==
PROVIDERS: Physician Assistant; Emergency Provider Physician Assistant; PCP Nurse Practitioner Family
DX: J18.9 Pneumonia, unspecified organism (principal); Z85.118 Personal history of other malignant neoplasm of bronchus and lung; J44.9 Chronic obstructive pulmonary disease, unspecified; I10 Essential (primary) hypertension; Z87.891 Personal history of nicotine dependence
CPT/HCPCS: 36415; 80053; 80076; 87040; 93005; 94640; 96360; 99285; 71046; 81003; 81015; 83605; 83735; 84484; 85025; 93010; J7620

== ENCOUNTER 2018-06-19 12:05 | Outpatient (CLI) | payer OTHER, SELFPAY ==
[2018-06-19 12:24] LABS: Abs Immature Grans 0.04 k/cumm (0.0-0.09); Absolute Basophil Count 0.03 k/cumm (0.0-0.2); Absolute Eosinophil Count 0.14 k/cumm (0.0-0.7); Absolute Lymphocyte Count 0.79 k/cumm (1.2-3.4); Absolute Monocyte Count 1.24 k/cumm (0.11-0.7); Absolute Neutrophil Count 8.51 k/cumm (1.2-6.7); Basophils % 0.3; Eosinophils % 1.3; HCT 31.5 % (36.0-46.0); HGB 10.5 g/dL (12.0-15.5); Immature Grans % 0.4; Lymphocytes % 7.3; Mean Corp. HGB Concentration 33.3 g/dL (32.0-36.0); Mean Corpuscular Hemoglobin 31.7 pg (27.0-33.0); Mean Corpuscular Volume 95.2 fL (80-95); Mean Platelet Volume 9.4 fL (8.0-11.0); Monocytes % 11.5; Neutrophils % 79.2; Platelet Count 345 x1000/uL (130-400); RBC 3.31 m/cumm (4.00-5.20); White Blood Cell Count 10.75 k/cumm (4.4-10.8)
[2018-06-19 12:40] LABS: ALT 40 U/L (12-78); AST 30 U/L (15-37); Albumin 2.3 g/dL (3.4-5.0); Alkaline Phosphatase 82 U/L (46-116); Anion Gap 7.1 mmol/L (3-11); BUN 20 mg/dL (7-18); Bilirubin, Total 0.5 mg/dL (0.2-1.0); CO2 30.9 mmol/L (21.0-32.0); CREATININE 0.66 mg/dL (0.55-1.02); Calcium 9.1 mg/dL (8.5-10.1); Chloride 100 mmol/L (98-107); Glucose 117 mg/dL (70-100); Potassium 3.5 mmol/L (3.5-5.1); Sodium 138 mmol/L (136-145); Total Protein 6.8 g/dL (6.4-8.2)
== END 2018-06-19 12:25 ==
PROVIDERS: PCP Nurse Practitioner Family; Visit Provider Nurse Practitioner Adult Health
DX: C34.32 Malignant neoplasm of lower lobe, left bronchus or lung (principal)
CPT/HCPCS: 36415; 80053; 85025